=== PATIENT | male | born 1990 | race Caucasian/White ===

== ENCOUNTER 2023-01-30 18:43 | Emergency (ER) | payer OTHER, SELFPAY ==
[2023-01-30 18:51] VITALS: BP 124/82; PULSE 110; RESP 18; TEMP 37.1; O2SAT 96; BMI 27.3
[2023-01-30] MEDS: Diphth,Pertus(ACell),Tet Adult 0.5 ML SYRINGE IM (18:59)
[2023-01-30] MEDS: Lidocaine HCl 1 % 20 ML VIAL 5 ML INFILTRATI (18:59)
--- NOTE | 2023-01-30 19:25 | ED.WOUNDLAC ---
HPI - Wound/Laceration General Chief Complaint: Wound/Laceration Stated Complaint: R inner thigh lac Time Seen by Provider: 01/30/23 18:49 Source: patient Mode of arrival: ambulatory Limitations: no limitations History of Present Illness HPI narrative: 32-year-old otherwise healthy male presents to the ER for evaluation of a laceration to his right inner thigh sustained about an hour ago while he was playing ice hockey. He states and I skate cut his right thigh. The area was not cleaned, a dressing was applied he was brought to the hospital. He states the laceration is about 3-4 inches long, he can see exposed fat. There is no active bleeding. He is unsure when his last tetanus shot was. He has no trouble walking. No other injuries. Onset (ago): hour(s) (1) Extremity Location: right: thigh Place: park Patient tetanus UTD: No Context: accidental Associated symptoms: none Treatments prior to arrival: bandage Related Data Allergies Allergy/AdvReac Type Severity Reaction Status Date / Time No Known Allergies Allergy Verified 01/30/23 18:49 Review of Systems Review of Systems: Yes all other systems are reviewed and are negative Physical Exam Vital Signs: Vital Signs: Last Vital Signs Temp 98.8 F 01/30/23 18:51 Pulse 110 H 01/30/23 18:51 Resp 18 01/30/23 18:51 BP 124/82 01/30/23 18:51 Pulse Ox 96 01/30/23 18:51 O2 Del Method 01/30/23 18:51 BMI result Body Mass Index 27.3 Appearance: Alert. Oriented X3. No acute distress. HEENT: normal inspection CVS: Normal heart rate and rhythm. Pulses normal. Respiratory: No respiratory distress. Skin: Skin warm and dry. Normal skin color. Normal skin turgor. No rashes. Extremities: Mid to distal portion of the right inner thigh with a 6 cm linear laceration with exposed adipose tissue centrally, gaping about 1 cm wide. No active bleeding. No numbness or tingling. Normal range of motion of the right lower extremity. Neurovascularly intact distal Neuro: Oriented X 3. No motor deficit. No sensory deficit. Steady gait Medications Administered Discontinued Medications Generic Name Dose Route Start Last Admin Trade Name Freq PRN Reason Stop Dose Admin Diphtheria/Tetanus/Acell Pertussis 0.5 ml 01/30/23 18:50 01/30/23 18:59 Diphth,Pertus(Acell),Tet Adult 0.5 Ml Syringe IM 01/30/23 18:51 0.5 ml .ONCE ONE Administration Lidocaine HCl 5 ml 01/30/23 18:50 01/30/23 18:59 Lidocaine Hcl 1 % 20 Ml Vial INFILTRATI 01/30/23 18:51 5 ml ONCE ONE Administration Medical Decision Making Medical Decision Making MDM Narrative: 32-year-old male present to the ER for evaluation of a laceration to his right thigh from and I skate. Wound appears to be superficial. Tolerated suture repair well. Tdap given. No evidence of infection. Area was cleansed with copious amounts of saline and iodine. No need for prophylactic antibiotics at this time. Wound care was discussed with the patient and all questions were answered. He is stable for discharge home. Differential Diagnosis Differential Diagnoses: The differential diagnosis associated with the presentation includes Superficial laceration, deep laceration, infected wound, no tendon or muscle involvement appreciated on examination today Prescription Management I considered prescription management with: Antibiotic No role for prophylactic antibiotics Procedures Laceration Laceration 1: Site: lower extremity Side (If applicable): right Size (cm): 6 Description: linear Depth: simple, single layer Local Anesthetic: lidocaine 1% Amount of anesthesia used (mL): 6 Pre-repair: wound explored, irrigated extensively and deep structures intact Skin layer closed with: nylon Size (cm): 3-0 Number of sutures: 6 Technique: simple, interrupted Discharge Plan Discharge Clinical Impression: Laceration Patient Disposition: Home, Self-Care Instructions: Laceration (ED) Additional Instructions: 6 sutures were used to close your wound today. You will need your stitches out in 7- 10 days. See you doctor for this or come back to the ER and we will remove them. Do not get wet for 24 hours, after that you can briefly wash with soap and water then pat dry. Keep wound clean and covered. Take Tylenol and Motrin as needed for pain If you develop signs of infection including increased pain, swelling, redness or drainage of pus come back to the ER for further evaluation. Stand Alone Forms: Work/School Release
--- OUTSIDE RECORDS SUMMARY | 2023-01-30 19:32 | XMS_ITS | Continuity of Care Document ---
:1990 Author Organization [facility] Address [address] [place] [address]- Care Team Providers Name Role Phone Aldo SALMON, Neida Whitney Primary Care Physician Encounter [facility] Date(s): 07/31/20 - 08/30/20 [facility] [address] [place] [address]- [facility] Attending Physician: Maira Castaneda Admitting Physician: Maira Castaneda Referring Physician: Admtr ArCash Allergies, Adverse Reactions, Alerts Substance Reaction Severity Status NKA Active Medications ibuprofen 600 mg oral tablet 1 tablet = 600 mg, By Mouth, 4 times a day, PRN as needed for pain, # 28 tablet, 0 Refills, Maintenance, 12/29/13 22:40:34, Tablet Start Date: 12/29/13 Stop Date: 01/05/14 Status: Ordered
--- OUTSIDE RECORDS SUMMARY | 2023-01-30 19:32 | XMS_ITS | Continuity of Care Document ---
:1990 Author Organization [facility] Address [address] [place] [address]- Care Team Providers Name Role Phone Neida Carlson MD Primary Care Physician Encounter [facility] [place] Date(s): 07/31/20 - 08/07/20 [facility] [address] [place] [address]- [facility] Encounter Diagnosis Screening for viral disease (Discharge Diagnosis) - 07/31/20 Attending Physician: Francis Lock MD Referring Physician: Neida Carlson MD Allergies, Adverse Reactions, Alerts Substance Reaction Severity Status NKA Active Medications ibuprofen 600 mg oral tablet 1 tablet = 600 mg, By Mouth, 4 times a day, PRN as needed for pain, # 28 tablet, 0 Refills, Maintenance, 12/29/13 22:40:34, Tablet Start Date: 12/29/13 Stop Date: 01/05/14 Status: Ordered Problem List Diagnosis Diagnosis Type Effective Dates Health Status Clinical In formant Service Screening for Discharge 07/31/20 viral disease Diagnosis
--- OUTSIDE RECORDS SUMMARY | 2023-01-30 19:32 | XMS_ITS | Continuity of Care Document ---
:1990 Author Organization [facility] Address [address] [place] [id number]- Care Team Providers Name Role Phone Neida Carlson MD Primary Care Physician [place] [facility] [place]19[place]22 - 12/19/[address] [address]- Encounter Diagnosis Exposure to blood (Final) - 12/19/22 Discharge Disposition: A-D/C Home Attending Physician: Saul Naylor MD Admitting Physician: Saul Naylor MD Referring Physician: Not on Staff, Referring MD Allergies, Adverse Reactions, Alerts No Known Allergies Medications ibuprofen 600 mg oral tablet 1 tablet = 600 mg, By Mouth, 4 times a day, PRN as needed for pain, # 28 tablet, 0 Refills, Maintenance, 12/29/13 22:40:34, Tablet Start Date: 12/29/13 Stop Date: 01/05/14 Status: Ordered Vital Signs Most recent to oldest [Reference Range]: 1 2 Oxygen Saturation [94-100 %] 100 % 98 % (12/19/22 3:45 PM) (12/19/22 2:31 PM) Pulse Rate [55-90 bpm] 66 bpm 73 bpm (12/19/22 3:45 PM) (12/19/22 2:31 PM) Blood Pressure [90-138/55-84 mm Hg] 130/80 mm Hg 126/ 78 mm Hg (12/19/22 3:45 PM) (12/19/22 2:31 PM) Respiratory Rate [16-30 br/min] 18 br/min 18 br/mi n (12/19/22 3:45 PM) (12/19/22 2:31 PM) Temperature [96.8-100.4 DegF] 98.0 DegF (12/19/22 2:31 PM) Mode of Delivery (Oxygen) Room air Room air (12/19/22 3:45 PM) (12/19/22 2:31 PM) Blood pressure sites Arm, left Arm, left (12/19/22 3:45 PM) (12/19/22 2:31 PM) Temperature Route Oral (12/19/22 2:31 PM) Patient Care team information Care Team PersonnelName: Neida Carlson MD Position: [facility] Physician (General Medicine) Member Role: PCP Address: Address: [address] [place] [id number]- Name: Saul Naylor MD Position: [facility] ED Medicine MD Member Role: Admitting Physician Address: Address: [address] [place] [id number]- Name: Betzaida Montez Position: [facility] ED TA [facility] Member Role: Patient Care Provider Name: Hilaria Hewitt Position: [facility] ED RN W/OE and Tasks Member Role: Patient Care Provider Name: Ana Pickens DO Position: [facility] Resident Member Role: ED Resident Address: Address: [address] [place] [address] [place] [address]- Care Team Related PersonsName: DARION JOSHI Address: home [address] [place] [address] [address] [place] [address] Name: CYNTHIA J[place]HI Address: [place] [address]
== END 2023-01-30 19:42 | disposition home or self-care (01) ==
LOC: HO.ED 19:31
PROVIDERS: Emergency Provider Emergency Medicine
DX: S71.111A Laceration without foreign body, right thigh, initial encounter (principal); S80.811A Abrasion, right lower leg, initial encounter; W26.9XXA Contact with unspecified sharp object(s), initial encounter; Y93.9 Activity, unspecified; Y92.9 Unspecified place or not applicable; Y99.9 Unspecified external cause status; Z23 Encounter for immunization
CPT/HCPCS: 12032; 90471; 90715; 99282; 99284